=== PATIENT | male | born 1960 | race Caucasian/White ===

== ENCOUNTER 2020-01-14 14:46 | Emergency (ER) | payer BC, SELFPAY ==
[2020-01-14 15:00] VITALS: BP 126/83; PULSE 64; RESP 18; TEMP 36.4; O2SAT 97
--- NOTE | 2020-01-14 15:09 | ED.GENADULT ---
HPI - General Adult General Chief complaint: Extremity Problem,Nontraumatic Stated complaint: poss infection to right finger Source: patient Mode of arrival: ambulatory Limitations: no limitations History of Present Illness HPI narrative: Patient is a 59-year-old male who presents with redness, swelling to right 3rd finger. He reports laceration a few weeks ago which is well healed, reports increased redness and pain starting over the past few days. He denies new injuries. He denies taking [id number] medications for pain at this time. He denies all other complaints. He reports pain is 6/10 with pressure or use of finger. MD complaint: Finger pain Related Data Allergies Allergy/AdvReac Type Severity Reaction Status Date / Time aspirin Allergy Unknown UNKNOWN Verified 01/14/20 14:58 Review of Systems Review of Systems: Narrative: CONSTITUTIONAL: Denies fever, chills, or sweats. EYES: Denies visual changes, redness, or discharge. ENT: Denies rhinorrhea, congestion, sore throat, or otalgia. CARDIOVASCULAR: Denies chest pain, palpitations, or edema. RESPIRATORY: Denies cough or dyspnea. GASTROINTESTINAL: Denies abdominal pain, nausea, vomiting, or diarrhea. GENITOURINARY: Denies dysuria or hematuria. SKIN: Redness and pain to right 3rd finger MUSCULOSKELETAL: Denies back pain, joint pain, or myalgia. NEUROLOGIC: Denies headache, numbness, dizziness, or weakness. PSYCHIATRIC: Denies anxiety or depression. [facility] Past Medical History Medical History (Updated 01/14/20 @ 15:15 by NATHALY Guerrero) Asthma Surgical History Surgical History (Updated 01/14/20 @ 15:12 by NATHALY Guerrero) History of tonsillectomy and adenoidectomy Family History Family History (Updated 01/14/20 @ 15:12 by NATHALY Guerrero) Other No significant family history Social History Social History (Updated 01/14/20 @ 15:12 by NATHALY Guerrero) Smoking status: Current every day smoker Tobacco type: cigarettes Alcohol intake: never Substance use: never Exam Narrative: Exam Narrative: GENERAL: Well-appearing, well-nourished, and in no acute distress. HEAD: Normocephalic, atraumatic. EYES: No redness or drainage. ENT: Mucous membranes pink and moist. CHEST: No respiratory distress. HEART: Regular rate and rhythm. EXTREMITIES: Erythema to distal tip of right third digit SKIN: Warm, dry, no rash. NEURO: No focal deficits. Alert and oriented x3. Gait steady. PSYCH: Normal affect. No signs of depression or anxiety. Course Vital Signs Vital signs: Vital Signs Temperature 36.4 C 01/14/20 15:00 Pulse Rate 64 01/14/20 15:00 Respiratory Rate 18 01/14/20 15:00 Blood Pressure 126/83 01/14/20 15:00 Pulse Oximetry 97 01/14/20 15:00 Temperature 36.4 C 01/14/20 15:00 Pulse Rate 64 01/14/20 15:00 Respiratory Rate 18 01/14/20 15:00 Blood Pressure 126/83 01/14/20 15:00 Pulse Oximetry 97 01/14/20 15:00 Procedures Abscess I/D other: Date of Incision: 01/14/20 Time of Incision: 15:16 Side (if applicable): right Sedation/analgesia: none Local Anesthetic: none Technique: needle aspiration Irrigation: No Packing used?: none I&D Results: Pus Abcess I&D Additional Comments: Patient had paronychia right middle finger, 18-gauge needle used for aspiration and drainage of paronychia. Patient tolerated well Medical Decision Making Differential Diagnosis Differential Diagnosis: Cellulitis, paronychia, avulsion, laceration Medical Records Medical records narrative: Patient appears to have paronychia to the right middle finger, I drained, patient started on antibiotics at this time. Discussed with patient to continue to monitor for infection and follow-up with PCP in 3 to 5 days if symptoms persist. Patient is aware that if redness or swelling increases, he needs to go to the emergency department for further evaluation.
== END 2020-01-14 15:27 | disposition home or self-care (01) ==
PROVIDERS: Emergency Provider Nurse Practitioner
DX: L03.011 Cellulitis of right finger (principal); J45.909 Unspecified asthma, uncomplicated
CPT/HCPCS: 10160; 99213; G0463

== ENCOUNTER 2021-05-13 14:08 | Outpatient (CLI) | payer BC, SELFPAY ==
--- NOTE | ~2021-05-13 | XR_ITS ---
EXAMINATION: XR_[id number]_CR, XR_[id number] DATE: 05/13/2021 14:36 INDICATION: Bilateral foot pain TECHNIQUE: 1. Weight bearing dorsal plantar, oblique and lateral views of the left foot were obtained. 2. Weight bearing dorsal plantar, oblique and lateral views of the right foot were obtained. COMPARISON: None. FINDINGS: Or malalignment at the bilateral feet and ankles. No fracture. L2 symmetric mild polyarticular osteoa rthritis at the bilateral first metatarsophalangeal and a few bilateral tarsometatarsal joints. Small right and moderate-sized left ventricle calcaneal spurs. Small enthesopathic ossicle at the distal r ight Achilles tendon. No cortical erosions. No periosteal reaction. No ankle joint effusion. The soft tissues are unremarkable. IMPRESSION: 1. 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 No acute osseous abnormality. Reviewed, dictated and finalized at location [facility]. IMPRESSION: 1. 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 No acute osseous abnormality.
== END 2021-05-13 14:09 | disposition home or self-care (01) ==
PROVIDERS: PCP Family Medicine; Visit Provider Podiatrist Foot & Ankle Surgery
DX: M19.071 Primary osteoarthritis, right ankle and foot (principal); M19.072 Primary osteoarthritis, left ankle and foot
CPT/HCPCS: 73630

== ENCOUNTER 2023-06-23 16:17 | Outpatient (CLI) | payer BC, SELFPAY ==
[2023-06-23 16:51] LABS: Basophils Percent Auto 0.3 % (0.2-1.2); Eosinophils Absolute Auto 0.1 K/mm3 (0-0.3); Eosinophils Percent Auto 0.9 % (0-4.4); Hematocrit 43.2 % (42.0-52.0); Hemoglobin 14.7 g/dL (14.0-18.0); Immature Granulocyte Absolute 0.06 K/mm3 (0.00-0.031); Immature Granulocyte Percent A 0.5 % (0-0.5); Lymphocytes Absolute Auto 1.86 K/mm3 (0.9-3.2); Lymphocytes Percent Auto 15.9 % (18.3-44.2); Mean Corpuscular Hemoglobin 29.9 pg (26-34); Mean Platelet Volume 11.2 fl (7.4-10.4); Monocytes Absolute Auto 0.8 K/mm3 (0.1-0.6); Monocytes Percent Auto 6.4 % (2.6-8.5); Neutrophils Absolute Auto 8.9 K/mm3 (1.3-6.7); Platelet Count Result 243 k/mm3 (150-375); Red Blood Count 4.91 M/mm3 (4.6-6.20); Red Cell Distribution Width 13.8 % (11.5-14.5); White Blood Count 11.7 K/mm3 (4.5-10.0)
[2023-06-23 16:53] LABS: Appearance Urine Clear (Clear); Bilirubin Urine Negative (Negative); Blood Urine Negative (Negative); Color Urine Yellow (Yellow); Glucose Urine UA Negative (Negative); Ketones Urine Negative (Negative); Leukocyte Esterase Ur Negative LEU/UL (Negative); Nitrate Urine Negative (Negative); Protein Urine Negative (Negative); Specific Grav Ur 1.006 (1.001-1.035); Urobilinogen Urine 0.2 mg/dL (<2.0)
[2023-06-23 16:56] LABS: Add Urine Microscopic? NO
[2023-06-23 19:52] LABS: Alanine Aminotransferase 22 U/L (6-50); Albumin Level 4.4 g/dL (3.5-5.1); Alkaline Phosphatase 74 U/L (38-126); Anion Gap 7 mmol/L (4-12); Aspartate Amino Transferase 26 U/L (17-59); Bilirubin,Total 0.7 mg/dL (0.2-1.3); Blood Urea Nitrogen 15 mg/dL (9-20); Calcium 9.9 mg/dL (8.4-10.2); Carbon Dioxide 25 mmol/L (22-30); Chloride 106 mmol/L (98-107); Cholesterol 165 mg/dL (0-200); Estimated Glomerular Filt Rate > 60; Glucose 84 mg/dL (65-110); HDL Direct 53 mg/dL; Potassium 3.7 mmol/L (3.4-5.0); Sodium 138 mmol/L (137-145); Triglycerides 89 mg/dL (<150)
[2023-06-23 20:03] LABS: LDL Cholesterol Direct 94 mg/dL
[2023-06-23 20:23] LABS: Prostate Specific Antigen 3.4 ng/mL (< OR = 4.0)
[2023-06-23 20:42] LABS: Hemoglobin A1C 5.3 % (<5.7)
[2023-06-23 20:58] LABS: Folic Acid 3.9 ng/mL (2.76->20)
== END 2023-06-23 16:18 | disposition home or self-care (01) ==
LOC: ANHLAB 16:20
PROVIDERS: PCP Family Medicine; Visit Provider Family Medicine
DX: Z00.00 Encounter for general adult medical examination without abnormal findings (principal); E55.9 Vitamin D deficiency, unspecified; F10.10 Alcohol abuse, uncomplicated
CPT/HCPCS: 36415; 80053; 80061; 81003; 82306; 82607; 82746; 83036; 84153; 84443; 85025

== ENCOUNTER 2023-08-17 10:00 | Outpatient (CLI) | payer OTHER, SELFPAY ==
--- NOTE | 2023-08-17 | ECG_ITS ---
Test Date: 2023-08-17 11:18:22 Measurements Intervals [place] Rate: 53 P: 61 SD: 227 QRS: 62 QRSD: 108 T: 30 QT: 421 QTc: 397 Interpretive Statements SINUS BRADYCARDIA WITH FIRST DEGREE AV BLOCK POSSIBLE INFERIOR MYOCARDIAL INFARCTION , PROBABLY OLD ABNORMAL ECG No previous ECG available for comparison Electronically Signed On 08-17-2023 11:34:32 CDT by Rao Armenta D.O.
--- NOTE | ~2023-08-17 | XR_ITS ---
Clinical Indication: Preop testing PA and lateral views of the chest: Comparison: 04/12/2016 Findings: Calcified right basilar granuloma is unchanged from prior exam. Probable bibasilar nipple s hadows present. There is right apical consolidation. Cardiomediastinal silhouette is within normal li mits. Bones and soft tissues are unremarkable. Impression: Right apical consolidation. This could reflect pneumonia versus scarring versus mass. Correlate clini patricia. Consider chest CT versus short-term follow-up exam after interval therapy to further assess. Stable calcified right basilar granuloma and probable bibasilar nipple shadows. Reviewed, dictated and finalized at [facility]. Impression: Right apical consolidation. This could reflect pneumonia versus scarring versus mass. Correlate clinically. Consider chest CT versus short-term follow-up exam after interval therapy to further assess. Stable calcified right basilar granuloma and probable bibasilar nipple shadows.
== END 2023-08-17 10:01 | disposition home or self-care (01) ==
PROVIDERS: PCP Family Medicine
DX: Z01.818 Encounter for other preprocedural examination (principal); R91.8 Other nonspecific abnormal finding of lung field; R94.31 Abnormal electrocardiogram [ECG] [EKG]
CPT/HCPCS: 71046; 93005